=== PATIENT | female | born 1955 | race Caucasian/White ===

== ENCOUNTER → 2017-04-22 | Outpatient (CLI) | payer MEDICARE, OTHER ==
[2017-04-27 11:07] LABS: LDL Size 21.6 nm (>20.5); LDL Size 2 21.6 nm (>=20.8); LDL-P (LDL Particle Number) 1214 nmol/L (<1000); Small LDL (Particle Number) 245 nmol/L (<=527)
== END | disposition home or self-care (01) ==
LOC: LABWHC1 09:19
PROVIDERS: ATTEND Internal Medicine Cardiovascular Disease
DX: E78.5 Hyperlipidemia, unspecified (principal)
CPT/HCPCS: 36415; 83704

== ENCOUNTER → 2017-07-20 | Outpatient (CLI) | payer MEDICARE, OTHER ==
--- NOTE | 2017-07-22 10:28 | MM ---
Reason for exam: screening (asymptomatic). Last mammogram was performed 1 year and 4 months ago. History: Patient is postmenopausal and had first child at age 33. Physical Findings: A clinical breast exam by your physician is recommended on an annual basis and results should be correlated with mammographic findings. MG 3D Screening Mammo W/Cad Bilateral CC and MLO view(s) were taken. Prior study comparison: March 19, 2016, bilateral MG 3d screening mammo w/cad. The breast tissue is heterogeneously dense. This may lower the sensitivity of mammography. No suspicious abnormality. No significant changes when compared with prior studies. ASSESSMENT: Negative, BI-RAD 1 RECOMMENDATION: Routine screening mammogram of both breasts in 1 year.
== END | disposition home or self-care (01) ==
LOC: RADMAMWWP 12:08
PROVIDERS: ATTEND Family Medicine
DX: Z12.31 Encounter for screening mammogram for malignant neoplasm of breast (principal)
CPT/HCPCS: 77063

== ENCOUNTER 2018-06-06 09:24 | Day surgery (SDC) | payer MEDICARE, OTHER ==
[2018-05-31 14:40] VITALS: BMI 18.7
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
[~2018-06-06 09:24] MED LIST: LACTATED RINGERS 1,000 ML IV SCH
[2018-06-06] MEDS ORDERED: LIDOCAINE 1% 20 ML VIAL (10MG/ML) FOR IV START INTRADERMA ONE (10:04)
[2018-06-06 10:07] VITALS: RESP 16; TEMP 97.8
[2018-06-06] MEDS ORDERED: PROPOFOL 10 MG/ML 20 ML VIAL IV ONE (11:01)
--- NOTE | 2018-06-06 11:28 | P.PCN ---
Date of Procedure: 06/06/18 Description of Procedure: PREOPERATIVE DIAGNOSIS: Colonoscopy screening Family history of gastrointestinal cancer POSTOPERATIVE DIAGNOSIS: Colonoscopy screening Family history of gastrointestinal cancer Multiple tubular adenomas throughout the colon. External hemorrhoids, grade 3. Severe scattered diverticulosis OPERATION: Colonoscopy to the ileocecal valve and appendiceal orifice. Colonoscopy with multiple hot snare polypectomies SURGEON: Shanelle Ross MD. ANESTHESIA: MAC. INDICATIONS: The patient is a 63-year-old female who presents for colonoscopy screening. Benefits and risks were described and informed consent was obtained. DESCRIPTION OF PROCEDURE: The patient had undergone Gatorade, MiraLAX and Dulcolax prep. A pediatric colonoscope was used. She had been brought into the operating room and laid in the left lateral decubitus position. After adequate intravenous sedation, the rectum was examined with 2% lidocaine jelly. External hemorrhoids were encountered. The rectal tone was within normal limits. No lesions were palpated in the rectal vault. An Olympus colonoscope was advanced until the ileocecal valve and appendiceal orifice were clearly viewed. The prep was fair with visualization of the mucosal folds. The scope was removed with visualization of each mucosal fold. Scattered diverticulosis was encountered. Multiple colonic polyps were found and snare polypectomy. No evidence of focal colitis was found. Retroflexion of the scope demonstrated grade 3 internal hemorrhoids without active bleeding or inflammation. The colon was desufflated. The patient had tolerated the procedure well. Withdrawal time was over 6 minutes. FINDINGS: Internal hemorrhoids, grade 3 External hemorrhoids, grade 3. No arteriovenous malformations. Severe sigmoid diverticulosis Removal of 2 polyps: - Snare polypectomy 20 cm from the anal verge, 5 mm tubulovillous adenoma polyp , sigmoid colon - Snare polypectomy 15 cm from the anal verge, 8 mm flat villous adenoma polyp, sigmoid colon No focal colitis. RECOMMENDATIONS: Given severity of tubular adenomas, recommend repeat colonoscopy 1 year, 2018 Plan - Discharge Summary New Discharge Prescriptions: No Action HYDROcodone/APAP 10-325MG [[place] 10] 1 each PO Q4HR PRN PRN Reason: Pain lamoTRIgine [LaMICtal] 200 mg PO HS lamoTRIgine [LaMICtal] 150 mg PO DAILY OLANZapine [ZyPREXA] 5 mg PO DAILY Dextroamphetamine/Amphetamine [Adderall] 30 mg PO DAILY Atorvastatin [Lipitor] 80 mg PO DAILY Mirtazapine [Remeron] 30 mg PO HS ALPRAZolam [Xanax] 1 mg PO TID PRN PRN Reason: Anxiety Discharge Medication List HYDROcodone/APAP 10-325MG [[place] 10] 1 each PO Q4HR PRN 03/24/15 [History] ALPRAZolam [Xanax] 1 mg PO TID PRN 05/31/18 [History] Atorvastatin [Lipitor] 80 mg PO DAILY 05/31/18 [History] Dextroamphetamine/Amphetamine [Adderall] 30 mg PO DAILY 05/31/18 [History] Mirtazapine [Remeron] 30 mg PO HS 05/31/18 [History] OLANZapine [ZyPREXA] 5 mg PO DAILY 05/31/18 [History] lamoTRIgine [LaMICtal] 150 mg PO DAILY 05/31/18 [History] lamoTRIgine [LaMICtal] 200 mg PO HS 05/31/18 [History]
[2018-06-06 11:54] VITALS: BP 140/82; PULSE 78
== END 2018-06-06 11:56 | disposition home or self-care (01) ==
LOC: ORWHC2ENDO 09:24
PROVIDERS: ATTEND Surgery Plastic and Reconstructive Surgery
DX: Z12.11 Encounter for screening for malignant neoplasm of colon (principal); D12.5 Benign neoplasm of sigmoid colon; K57.30 Diverticulosis of large intestine without perforation or abscess without bleeding; K64.2 Third degree hemorrhoids; K64.4 Residual hemorrhoidal skin tags; Z80.0 Family history of malignant neoplasm of digestive organs; E78.5 Hyperlipidemia, unspecified; F17.210 Nicotine dependence, cigarettes, uncomplicated; F41.9 Anxiety disorder, unspecified; M79.9 Soft tissue disorder, unspecified; G89.29 Other chronic pain; M54.9 Dorsalgia, unspecified; Z79.899 Other long term (current) drug therapy
CPT/HCPCS: 88305; 45385; J2704

== ENCOUNTER → 2018-09-07 | Outpatient (CLI) | payer MEDICARE, OTHER ==
--- NOTE | 2018-09-09 08:06 | MM ---
Reason for exam: screening (asymptomatic). Last mammogram was performed 1 year and 2 months ago. History: Patient is postmenopausal and had first child at age 33. Physical Findings: A clinical breast exam by your physician is recommended on an annual basis and results should be correlated with mammographic findings. MG 3D Screening Mammo W/Cad Bilateral CC and MLO view(s) were taken. Prior study comparison: July 20, 2017, bilateral MG 3d screening mammo w/cad. March 19, 2016, bilateral MG 3d screening mammo w/cad. The breast tissue is heterogeneously dense. This may lower the sensitivity of mammography. Finding: There is a 7 mm circumscribed oval mass in the upper outer quadrant, posterior position of the left breast. There is a chronic nodularity bilaterally. Increased in size right axilla, favor benign lymph nodes. New finding since July 20, 2017 and March 19, 2016. ASSESSMENT: Incomplete: need additional imaging evaluation, BI-RAD 0 RECOMMENDATION: Ultrasound of the left breast. [facility] will attempt to contact patient to return for ultrasound.
== END | disposition home or self-care (01) ==
LOC: RADMAMWWP 13:59
PROVIDERS: ATTEND Family Medicine
DX: Z12.31 Encounter for screening mammogram for malignant neoplasm of breast (principal)
CPT/HCPCS: 77063; 77067

== ENCOUNTER → 2018-09-13 | Outpatient (CLI) | payer MEDICARE, OTHER ==
--- NOTE | 2018-09-13 12:24 | USB ---
Reason for exam: additional evaluation requested from abnormal screening. History: Patient is postmenopausal and had first child at age 33. Physical Findings: Nurse did not find any significant physical abnormalities on exam. US Breast Workup Limited LT Technologist: Annette Tong RT (R)(M) Left limited breast ultrasound including focal area of concern, retroareolar and axilla demonstrates a 7 x 4 x 6mm questionable echogenic node at 2 o'clock 5cm from nipple. This improves on MLO spot compression and appears to have a notch on spot compression CC. Likely an intramammary node. Short term follow up recommended. These results were verbally communicated with the patient and result sheet given to the patient on 09/13/18. ASSESSMENT: Probably benign, BI-RAD 3 RECOMMENDATION: Follow-up diagnostic mammogram and ultrasound of the left breast in 6 months.
--- NOTE | 2018-09-14 08:54 | MM ---
Reason for exam: additional evaluation requested from abnormal screening. Last mammogram was performed less than 1 month ago. History: Patient is postmenopausal and had first child at age 33. Physical Findings: Nurse did not find any significant physical abnormalities on exam. MG 3D Work Up W/Cad LT Spot compression CC and spot compression MLO view(s) were taken of the left breast. Technologist: Annette Tong RT (R)(M) Prior study comparison: September 07, 2018, bilateral MG 3d screening mammo w/cad. July 20, 2017, bilateral MG 3d screening mammo w/cad. The breast tissue is heterogeneously dense. This may lower the sensitivity of mammography. There is a left posterior depth upper outer quadrant mass that persists on spot CC view and improves on spot MLO. These results were verbally communicated with the patient and result sheet given to the patient on 09/13/18. ASSESSMENT: Incomplete: need additional imaging evaluation, BI-RAD 0 RECOMMENDATION: Ultrasound of the left breast. (upper outer quadrant)
== END ==
LOC: RADUSWWP 10:21
PROVIDERS: ATTEND Family Medicine
DX: R92.8 Other abnormal and inconclusive findings on diagnostic imaging of breast (principal)
CPT/HCPCS: 77065; 76642; G0279; 77061

== ENCOUNTER 2020-02-15 13:39 | Emergency (ER) | payer MEDICARE, OTHER ==
[2020-02-15 13:50] VITALS: TEMP 97.7
[2020-02-15] MEDS ORDERED: methylPREDNISolone SOD SUCCI 125 MG/2 ML VIAL IV STA (14:36)
[2020-02-15 14:52] LABS: Basophils # (A) 0.1 k/uL (0-0.2); Basophils % (A) 1 %; Eosinophils % (A) 0 %; HCT 41.2 % (34.0-46.0); HGB 13.3 gm/dL (11.4-16.0); Lymphocytes % (A) 23 %; MCH 29.7 pg (25.0-35.0); MCHC 32.3 g/dL (31.0-37.0); MCV 91.9 fL (80.0-100.0); Mean Platelet Volume 8.1; Monocytes # (A) 0.4 k/uL (0-1.0); Monocytes % (A) 4 %; Neutrophils # (A) 5.9 k/uL (1.3-7.7); Neutrophils % (A) 69 %; Platelet Count 262 k/uL (150-450); RBC 4.49 m/uL (3.80-5.40); RDW 12.5 % (11.5-15.5); WBC 8.5 k/uL (3.8-10.6)
[2020-02-15 14:59] LABS: ALT 19 U/L (4-34); AST 26 U/L (14-36); African American GFR (CKD) >90 (>60 ml/min/1.73 sqM); Albumin 3.9 g/dL (3.5-5.0); Alkaline Phosphatase 54 U/L (38-126); Anion Gap 5 mmol/L; Blood Urea Nitrogen 11 mg/dL (7-17); Carbon Dioxide 26 mmol/L (22-30); Chloride 109 mmol/L (98-107); Glucose 83 mg/dL (74-99); Non-African American GFR(CKD) >90 (>60 ml/min/1.73 sqM); Potassium 4.6 mmol/L (3.5-5.1); Sodium 140 mmol/L (137-145); Total Bilirubin 0.2 mg/dL (0.2-1.3); Total Protein 6.1 g/dL (6.3-8.2)
[2020-02-15 15:24] LABS: INR 0.9 (<1.2); Prothrombin Time 9.8 sec (9.0-12.0)
--- NOTE | 2020-02-15 15:33 | XR ---
EXAMINATION TYPE: XR chest 1V portable DATE OF EXAM: 02/15/2020 COMPARISON: NONE HISTORY: Shortness of breath, cough, and fever TECHNIQUE: Single frontal view of the chest is obtained. FINDINGS: There is no focal air space opacity, pleural effusion, or pneumothorax seen. The cardiac silhouette size is within normal limits. The osseous structures are intact. Right-sided humeral fra cture or hardware is partially visualized.. IMPRESSION: No acute process.
[2020-02-15 15:40] LABS: Partial Thromboplastin Time 20.3 sec (22.0-30.0)
[2020-02-15] MEDS ORDERED: predniSONE 20 MG TAB PO STA (16:05)
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
[2020-02-15 16:42] VITALS: BP 133/91; PULSE 71; RESP 20
== END 2020-02-15 16:44 | disposition home or self-care (01) ==
LOC: EC 13:39
DX: J98.01 Acute bronchospasm (principal); E78.5 Hyperlipidemia, unspecified; F41.9 Anxiety disorder, unspecified; F31.9 Bipolar disorder, unspecified; F43.10 Post-traumatic stress disorder, unspecified; F17.200 Nicotine dependence, unspecified, uncomplicated; Z79.899 Other long term (current) drug therapy
CPT/HCPCS: 36415; 93005; 83880; 80053; 83605; 85025; 85610; 85730; 87502; 71045; 99285; 96374; J2930

== ENCOUNTER → 2020-10-14 | Outpatient (CLI) | payer MEDICARE, OTHER | END | disposition home or self-care (01) | LOC: LABWHC1 11:24 | PROVIDERS: ATTEND Family Medicine | DX: R05 Cough (principal); R09.89 Other specified symptoms and signs involving the circulatory and respiratory systems | CPT/HCPCS: U0003; C9803 ==

== ENCOUNTER 2020-12-11 07:50 | Day surgery (SDC) | payer MEDICARE, OTHER ==
[2020-12-06 10:37] VITALS: BMI 18.5
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
[2020-12-11] MEDS ORDERED: LIDOCAINE 1% (10MG/ML) FOR IV START INTRADERMA ONE (08:35)
[2020-12-11] MEDS ORDERED: PROPOFOL 10 MG/ML 20 ML VIAL IV ONE (08:38)
[2020-12-11 08:41] VITALS: RESP 16; TEMP 97.5
--- NOTE | 2020-12-11 09:12 | P.PCN ---
Date of Procedure: 12/11/20 Description of Procedure: PREOPERATIVE DIAGNOSIS: Personal history of colon polyps POSTOPERATIVE DIAGNOSIS: Personal history of colon polyps Tubular adenoma transverse colon Sigmoid diverticulosis OPERATION: Colonoscopy to the cecum Colonoscopy with hot snare polypectomies SURGEON: Shanelle Ross MD. ANESTHESIA: MAC. INDICATIONS: The patient is an 65-year-old female who presents personal history of colon polyps. Last colonoscopy 5 years. Benefits and risks were described and informed consent was obtained. DESCRIPTION OF PROCEDURE: The patient had undergone Suprep. She had been brought into the operating room and laid in the left lateral decubitus position. After adequate intravenous sedation, the rectum was examined with 2% lidocaine jelly. External hemorrhoids were encountered. The rectal tone was within normal limits. No lesions were palpated in the rectal vault. An Olympus colonoscope was advanced until the cecum, ileocecal valve and appendiceal orifice were clearly viewed. The prep was fair. Sigmoid diverticulosis was encountered. Colonic polyps were found and snare polypectomy. No evidence of focal colitis was found. Retroflexion of the scope demonstrated grade 2 internal hemorrhoids without active bleeding or inflammation. The colon was desufflated. The patient had tolerated the procedure well. Withdrawal time was over 6 minutes. FINDINGS: Aronchick preparation quality scale 1 (1-5) Internal hemorrhoids, grade 2 External hemorrhoids, grade 2 No arteriovenous malformations. Sigmoid diverticulosis Removal of 1 polyp: - Snare polypectomy at proximal transverse colon, 8 mm polyp. No focal colitis. RECOMMENDATIONS: Repeat colonoscopy 2 years, 2022 Plan - Discharge Summary Discharge Rx Participant: No New Discharge Prescriptions: Continue lamoTRIgine [LaMICtal] 200 mg PO HS lamoTRIgine [LaMICtal] 150 mg PO DAILY OLANZapine [ZyPREXA] 5 mg PO DAILY Dextroamphetamine/Amphetamine [Adderall] 30 mg PO DAILY Atorvastatin [Lipitor] 80 mg PO DAILY ALPRAZolam [Xanax] 1 mg PO TID PRN PRN Reason: Anxiety Albuterol Nebulized [Ventolin Nebulized] 2.5 mg INHALATION Q4H PRN #25 nebu PRN Reason: difficulty in breathing oxyCODONE-APAP 10-325MG [Percocet 10-325 mg] 1 tab PO Q8HR PRN PRN Reason: Pain Discharge Medication List ALPRAZolam [Xanax] 1 mg PO TID PRN 05/31/18 [History] Atorvastatin [Lipitor] 80 mg PO DAILY 05/31/18 [History] Dextroamphetamine/Amphetamine [Adderall] 30 mg PO DAILY 05/31/18 [History] OLANZapine [ZyPREXA] 5 mg PO DAILY 05/31/18 [History] lamoTRIgine [LaMICtal] 150 mg PO DAILY 05/31/18 [History] lamoTRIgine [LaMICtal] 200 mg PO HS 05/31/18 [History] Albuterol Nebulized [Ventolin Nebulized] 2.5 mg INHALATION Q4H PRN #25 nebu 02/15/20 [Rx] oxyCODONE-APAP 10-325MG [Percocet 10-325 mg] 1 tab PO Q8HR PRN 12/06/20 [History] Follow up Appointment(s)/Referral(s): Shanelle Ross MD [STAFF PHYSICIAN] - As Needed Patient Instructions/Handouts: Diverticulosis Diet (GEN), Diverticulosis (DC), Colorectal Polyps (DC) Activity/Diet/Wound Care/Special Instructions: Repeat colonoscopy 2 years, 2022 Discharge Disposition: HOME SELF-CARE
[2020-12-11 09:23] VITALS: BP 132/79; PULSE 58
== END 2020-12-11 10:04 | disposition home or self-care (01) ==
LOC: ORWHC2ENDO 07:50
PROVIDERS: ATTEND Surgery Plastic and Reconstructive Surgery
DX: Z12.11 Encounter for screening for malignant neoplasm of colon (principal); D12.3 Benign neoplasm of transverse colon; K57.30 Diverticulosis of large intestine without perforation or abscess without bleeding; K64.4 Residual hemorrhoidal skin tags; K64.1 Second degree hemorrhoids; Z86.010 Personal history of colon polyps; E78.5 Hyperlipidemia, unspecified; G89.29 Other chronic pain; M54.9 Dorsalgia, unspecified; M25.569 Pain in unspecified knee; F17.210 Nicotine dependence, cigarettes, uncomplicated; F41.9 Anxiety disorder, unspecified; F90.9 Attention-deficit hyperactivity disorder, unspecified type; Z90.49 Acquired absence of other specified parts of digestive tract; Z98.890 Other specified postprocedural states; Z87.81 Personal history of (healed) traumatic fracture; Z79.899 Other long term (current) drug therapy; Z79.891 Long term (current) use of opiate analgesic; Z87.39 Personal history of other diseases of the musculoskeletal system and connective tissue
CPT/HCPCS: 88305; 45385; J2704

== ENCOUNTER 2021-11-13 16:49 | Observation (INO) | payer MEDICARE, OTHER ==
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
[2021-11-13 19:12] LABS: Basophils # (A) 0.1 k/uL (0-0.2); Basophils % (A) 1 %; Eosinophils % (A) 0 %; HCT 39.2 % (34.0-46.0); HGB 12.5 gm/dL (11.4-16.0); Lymphocytes # (A) 1.9 k/uL (1.0-4.8); Lymphocytes % (A) 24 %; MCH 30.7 pg (25.0-35.0); MCV 95.8 fL (80.0-100.0); Monocytes # (A) 0.4 k/uL (0-1.0); Monocytes % (A) 5 %; Neutrophils # (A) 5.6 k/uL (1.3-7.7); Neutrophils % (A) 69 %; Platelet Count 225 k/uL (150-450); RBC 4.09 m/uL (3.80-5.40); RDW 12.8 % (11.5-15.5); WBC 8.1 k/uL (3.8-10.6)
[2021-11-13 19:21] LABS: Sodium 137 mmol/L (137-145)
[2021-11-13 19:23] LABS: African American GFR (CKD) >90 (>60 ml/min/1.73 sqM); Anion Gap 8 mmol/L; Blood Urea Nitrogen 12 mg/dL (7-17); Calcium 9.1 mg/dL (8.4-10.2); Carbon Dioxide 25 mmol/L (22-30); Chloride 104 mmol/L (98-107); Glucose 88 mg/dL (74-99); Magnesium 2.1 mg/dL (1.6-2.3); Non-African American GFR(CKD) 85 (>60 ml/min/1.73 sqM)
[2021-11-13 19:35] LABS: INR 0.9 (<1.2); Partial Thromboplastin Time 22.4 sec (22.0-30.0)
--- NOTE | 2021-11-13 20:59 | CT ---
EXAMINATION TYPE: CT angio head neck DATE OF EXAM: 11/13/2021 HISTORY: 66 yo with dizziness and double vision. COMPARISON: None CT DLP: 345.5 mGycm. Automated Exposure Control for Dose Reduction was Utilized. TECHNIQUE: CTA scan of the neck is performed with IV Contrast, patient injected with 65ml mL of Isov ue 370, axial images are obtained, coronal and sagittal reformatted images are reviewed. 3D reconstru cted images are created on an independent workstation and reviewed. FINDINGS: CTA neck findings: Carotid/Vascular Structures: The bilateral carotid and vertebral arterial systems are widely patent. There is no dissection, significant stenosis, or filling defect. Other: No incidental findings. CTA brain findings: The anterior and posterior intracranial arterial systems are widely patent. There is no significant s tenosis, dissection, filling defect, or aneurysm. Other: No incidental findings. IMPRESSION: No significant abnormality is seen. NASCET criteria was used in interpretation of this exam?
[2021-11-13] MEDS ORDERED: NALOXONE 0.4 MG/ML 1 ML VIAL IV PRN (21:08)
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
[2021-11-14 12:15] LABS: Lithium <0.2 mmol/L
[2021-11-14 12:28] LABS: Amphetamine Screen,Urine Detected (NotDetected); Barbiturate Screen,Urine Not Detected (NotDetected); Benzodiazepines Screen,Urine Detected (NotDetected); Cocaine Screen,Urine Not Detected (NotDetected); Methadone Screen, Urine Not Detected (NotDetected); Opiate Screen,Urine Not Detected (NotDetected); Oxycodone Screen, Urine Detected (NotDetected); Phencyclidine Screen,Urine Not Detected (NotDetected); Tricyclic Antidepressant,Urine Not Detected (NotDetected); Urn Cannabinoid Scrn Detected (NotDetected)
--- NOTE | 2021-11-14 14:20 | MR ---
EXAMINATION TYPE: MR brain wo con DATE OF EXAM: 11/14/2021 COMPARISON: CT brain from yesterday. HISTORY: Diplopia, dizziness, visual disturbance, ?CVA TECHNIQUE: Multiplanar, multisequence imaging of the brain and brainstem is performed without IV cont rast. FINDINGS: Diffusion weighted images demonstrate no evidence of a recent infarct or other diffusion abnormality. Ventricles and sulci within normal limits in size for patient's age. Scattered foci of T2 hyperintens ity are seen throughout the white matter bilaterally. Approximately 30 scattered lesions are seen. Le sions are nonspecific in appearance and distribution. Midline structures demonstrate normal morphology. The craniocervical junction appears within normal limits. Normal vascular flow voids are present. The visualized sinuses are clear and the globes are i ntact. IMPRESSION: No MRI evidence for recent infarct. [id number] nonspecific white matter changes fav or product of chronic small vessel ischemic change.
[2021-11-14] MEDS ORDERED: PNEUMOCOCCAL VACC-PNEUMOVAX 23 25 MCG/0.5 ML VIAL IM ONE (17:25)
--- NOTE | 2021-11-14 17:47 | ECHOF ---
Referral Reason:Neuro symptoms, ?TIA MEASUREMENTS -------- HEIGHT: 162.6 cm WEIGHT: 49.9 kg BP: 120/88 RVIDd: 2.7 cm (< 3.3) IVSd: 1.1 cm (0.6 - 1.1) LVIDd: 2.9 cm (3.9 - 5.3) LVPWd: 1.1 cm (0.6 - 1.1) IVSs: 1.2 cm LVIDs: 2.2 cm LVPWs: 1.4 cm LA Diam: 2.7 cm (2.7 - 3.8) LAESV Index (A-L): 24.11 ml/m Ao Diam: 3.0 cm (2.0 - 3.7) AV Cusp: 2.0 cm (1.5 - 2.6) MV EXCURSION: 12.180 mm (> 18.000) MV EF SLOPE: 77 mm/s (70 - 150) EPSS: 0.5 cm MV E Jose: 0.81 m/s MV DecT: 231 ms MV A Jose: 1.00 m/s MV E/A Ratio: 0.81 RAP: 5.00 mmHg RVSP: 26.56 mmHg FINDINGS -------- Sinus rhythm. This was a technically good study. The left ventricular size is normal. There is borderline concentric left ventricular hypertrophy. Overall left ventricular systolic function is normal with, an EF between 60 - 65 %. The right ventricle is normal in size. Normal LA size by volume 22+/-6 ml/m2. The right atrium is normal in size. Interatrial and interventricular septum intact. Trace amount of aortic regurgitation. Mild mitral regurgitation is present. Mild tricuspid regurgitation present. Right ventricular systolic pressure is normal at < 35 mmHg. Trace/mild (physiologic) pulmonic regurgitation. The aortic root size is normal. Normal inferior vena cava with normal inspiratory collapse consistent with estimated right atrial pre ssure of 5 mmHg. There is no pericardial effusion. CONCLUSIONS -------- 1. The left ventricular size is normal. 2. There is borderline concentric left ventricular hypertrophy. 3. Overall left ventricular systolic function is normal with, an EF between 60 - 65 %. 4. Trace amount of aortic regurgitation. 5. Mild mitral regurgitation is present. 6. Mild tricuspid regurgitation present. 7. Trace/mild (physiologic) pulmonic regurgitation. 8. There is no pericardial effusion. VEHICLE REFINISHER: MICHAEL Hdez
[2021-11-14] MEDS ORDERED: FLUTICASONE 50MCG/SPRAY NASAL 16GM EA NOSTRIL PRN (17:50)
[2021-11-14] MEDS ORDERED: ALPRAZolam 1 MG TAB PO PRN (17:50)
[2021-11-14] MEDS ORDERED: oxyCODONE-APAP 10-325MG 1 EACH TAB PO PRN (17:50)
--- NOTE | 2021-11-14 19:49 | HP ---
HISTORY AND PHYSICAL CHIEF COMPLAINT: Visual disturbances and ataxia. HISTORY OF PRESENT ILLNESS: This is another admission for this 66-year-old white female with psychiatric issues. Apparently she was seeing her psychiatrist and reported that for several weeks she had been having scotomata, hallucinations and diplopia. She was sent to the emergency room because of the possibility of central nervous system issues. This could also be related to medication side effects. She stated that she also had been somewhat dizzy and ataxic. REVIEW OF SYSTEMS: She denied any headaches, difficulty with the vision other than that already mentioned, chest pain, shortness of breath, palpitations, abdominal pain, nausea, vomiting, melena, hematochezia, diarrhea, renal failure, dysuria, frequency, urgency, incontinence, or any focal neurologic, cranial nerve or sensory motor deficits. Past medical history, family history, and personal and social histories demonstrate that she has had a longstanding history of psychiatric issues, including schizophrenia, ADD, ADHD, depression and anxiety. She is ALLERGIC TO BACLOFEN. Medications that she is on include Symbicort, vitamin D, atorvastatin, Xanax, aspirin, Percocet, Effexor, Adderall, vitamin D, Zyprexa, lamotrigine and Ventolin. The remainder of her history is unremarkable, except she does continue to smoke. She does not drink. PHYSICAL EXAMINATION: Blood pressure is 112/78, pulse of 85 and regular, respirations of 18 and temperature 98.6. In general she appeared to be slender and in no acute distress. Skin color was normal and the skin was warm and dry. Lymph nodes were not enlarged. Head, ears, eyes, nose, mouth and throat were normal. Neck veins were not distended. There were no carotid bruits. Bilateral carotid pulses were palpable. The chest was clear to auscultation and percussion. The cardiac exam demonstrated normal sinus rhythm with no murmurs or extra sounds. The abdomen was soft and nontender without visceromegaly or masses. Bowel sounds are present. Extremities are normal. Neurologically she seemed to be intact. Cranial nerves are intact from 2 to 12 and sensory motor exam was normal. She is admitted to the hospital with the diagnoses: 1. Diplopia, dizziness, ataxia and scotomata, etiology unknown. 2. Major depression with schizophrenia and attention deficit disorder. 3. Nicotine abuse. PLAN: 1. Bedrest. 2. IV fluids. 3. Frequent monitoring of her neurologic status and vital signs. 4. Neurology consult. 5. MRI. 6. Rule out medication side effect. SHIRA / DENN: [id number] /
--- NOTE | 2021-11-14 19:49 | PN ---
PROGRESS NOTE CHIEF COMPLAINT: Scotomata, diplopia and dizziness. HISTORY OF PRESENT ILLNESS: This lady is doing fairly well. She has had no new problems. Her MRI is normal as well as the CT angiogram of the neck and head. She is complaining of her usual problems of anxiety and back pain and her medications will be reordered. PHYSICAL EXAMINATION: Chest is clear. Cardiac exam is normal. Abdomen is soft, nontender. IMPRESSION: Ataxia, scotomata and diplopia. PLAN: 1. Continue workup. 2. Await lithium level. MMODL / IJN: [id number] /
[2021-11-14] MEDS: GABAPENTIN 300 MG CAP PO SCH (20:23)
[2021-11-14] MEDS: ASPIRIN 81 MG PO SCH (20:23)
[2021-11-14] MEDS: lamoTRIgine 100 MG TAB PO SCH (20:23)
[2021-11-14] MEDS: SYMBICORT 160-4.5 MCG INHALER INHALATION SCH (20:50)
[2021-11-14] MEDS ORDERED: LATANOPROST 0.005% OPHTH DROPS 2.5 ML BTL BOTH EYES SCH (21:00)
[2021-11-14] MEDS ORDERED: OLANZapine 7.5 MG TAB PO SCH (21:00)
[2021-11-14] MEDS ORDERED: LITHIUM CARBONATE 300 MG CAP PO SCH (21:00)
[2021-11-15] MEDS: SYMBICORT 160-4.5 MCG INHALER INHALATION SCH (08:05)
[2021-11-15] MEDS ORDERED: TIMOLOL 0.5% OPHTH DROPS 5 ML BTL BOTH EYES SCH (09:00)
[2021-11-15] MEDS ORDERED: LORATADINE 10 MG TAB PO SCH (09:00)
[2021-11-15 09:06] VITALS: RESP 17
[2021-11-15] MEDS: GABAPENTIN 300 MG CAP PO SCH (09:25)
[2021-11-15] MEDS: ASPIRIN 81 MG PO SCH (09:26)
[2021-11-15] MEDS: lamoTRIgine 100 MG TAB PO SCH (09:26)
[2021-11-15 11:13] VITALS: BMI 18.8
[2021-11-15] MEDS ORDERED: CYANOCOBALAMIN 1,000 MCG/ML 1 ML VIAL IM ONE (14:00)
[2021-11-15 14:20] VITALS: BP 128/79; PULSE 68; TEMP 97.8
--- NOTE | 2021-11-15 15:29 | P.PN ---
Subjective Progress Note Date: 11/15/21 This is a telemedicine neurology follow-up performed today on 11/15/2021. Patient was seen for a follow-up. Patient states she is feeling much better. Her dizziness is much improved. Her mentation is improved. Offers no complaints. Objective - Vital Signs Vital signs: Vital Signs Temp 97.8 F 11/15/21 12:00 Pulse 68 11/15/21 14:00 Resp 17 11/15/21 14:00 BP 128/79 11/15/21 12:00 Pulse Ox 100 11/15/21 12:00 Intake & Output 11/14/21 11/15/21 11/15/21 18:59 06:59 18:59 Intake Total 240 100 Balance 240 100 Weight 49.895 kg 49.8 kg 49.8 kg Intake: Oral 240 100 Other: Voiding Method Toilet Toilet # Voids 1 1 - Exam Mental status, speech and language functions are normal. Cranial nerves are normal. Muscles normal. - Labs CBC & Chem 7: 11/13/21 18:36 11/13/21 18:36 Assessment and Plan Assessment: * 66-year-old female with a one-month history of multiple symptoms including dizziness, intermittent double and blurred vision, "not feeling like herself", nausea. Symptoms started after patient started taking Neurontin about a month ago, at the same time symptoms started. Patient already was taking multiple psychoactive medications prior, and after addition of Neurontin, probably tipped the balance off towards side effects. Her examination is nonfocal. * Visual disturbance, unclear etiology. Rule out central ischemia. * Tobacco use * Depression * Marijuana use * ADD Plan: * MRI of the brain without contrast is normal. No acute process. No acute infarct. Mild to moderate nonspecific white matter changes favored product of chronic small vessel ischemic change. * 2-D echo revealed normal left ventricular size. Borderline concentric LVH. EF is between 60-65%. Trace amount of AR. Mild MR. No embolic source. * CTA of head and neck showed no embolic source. * Suggest discontinuing gabapentin because of side effects. * Patient recommended to follow up with her psychiatrist to review her medication list, as she is probably experiencing side effects from the medication. * Recommended complete tobacco cessation * Urine drug screen positive for oxycodone, amphetamine, benzodiazepine and marijuana. * Patient's blood test shows B12 387, folate 10.4 TSH 1.18, Lamictal is 3.7 (2- 15), lithium <0.2. Patient given B12 1000 g IM 1 dose. Patient to continue vitamin B12 1000 g sublingually daily. * Continue aspirin 81 mg daily. * Telemetry showing couplets, triplets, some bigeminy's, some PVCs. Sinus rhythm. No other arrhythmia. * Neurologically clear for discharge.
--- NOTE | 2021-11-15 16:23 | DS ---
DISCHARGE SUMMARY DATE OF SERVICE: 11/15/2021 CHIEF COMPLAINT: Ataxia, diplopia and dizziness. HISTORY OF PRESENT ILLNESS AND PHYSICAL EXAMINATION: Details of this lady's history and physical can be found in the initial workup. LABORATORY STUDIES: While she was in the hospital she had laboratory studies, details of which can be found in the laboratory section of her chart. COURSE IN THE HOSPITAL: After admission she was placed on bedrest and started on intravenous fluids and seen by Neurology. MRI was normal. Her symptoms disappeared, and she thought it was related to gabapentin, which she had recently been started on. She was doing well and was asymptomatic and felt that she could go home on 11/15. She will go home on her usual activity and medications without the gabapentin. FINAL DIAGNOSIS: Nausea, ataxia and diplopia secondary to medication side effect. OPERATIONS: None. CONSULTATION: Neurology. She is improved. SHIRA / ANIBAL: [id number] /
== END 2021-11-15 15:25 | disposition home or self-care (01) ==
LOC: EC 16:49 → INTOOBSV 21:08 → 3SCARD 21:08 → UNDODISIN 11-15 15:25
PROVIDERS: ADMIT Family Medicine; ATTEND Family Medicine
DX: R27.0 Ataxia, unspecified (principal); H53.2 Diplopia; R11.0 Nausea; T42.6X5A Adverse effect of other antiepileptic and sedative-hypnotic drugs, initial encounter; H53.459 Other localized visual field defect, unspecified eye; E78.5 Hyperlipidemia, unspecified; H55.00 Unspecified nystagmus; F31.9 Bipolar disorder, unspecified; F43.10 Post-traumatic stress disorder, unspecified; F41.9 Anxiety disorder, unspecified; I49.3 Ventricular premature depolarization; F20.9 Schizophrenia, unspecified; F90.9 Attention-deficit hyperactivity disorder, unspecified type; G56.00 Carpal tunnel syndrome, unspecified upper limb; G89.29 Other chronic pain; M54.2 Cervicalgia; M54.9 Dorsalgia, unspecified; M54.30 Sciatica, unspecified side; M25.569 Pain in unspecified knee; F17.210 Nicotine dependence, cigarettes, uncomplicated; Z23 Encounter for immunization; Z71.6 Tobacco abuse counseling; Z20.822 Contact with and (suspected) exposure to COVID-19; Z79.51 Long term (current) use of inhaled steroids; Z79.1 Long term (current) use of non-steroidal anti-inflammatories (NSAID); Z79.899 Other long term (current) drug therapy; Z88.8 Allergy status to other drugs, medicaments and biological substances; Z86.010 Personal history of colon polyps; Z90.49 Acquired absence of other specified parts of digestive tract; Z98.890 Other specified postprocedural states
CPT/HCPCS: 96372; 99285; 36415; 94640; 93005; 93306; 80048; 80175; 84443; 82607; 82746; 80178; 83735; 85025; 85610; 85730; 80306; 87635; 70496; 70498; 70551; 90732; G0378 ×3; G0009; J3420; Q9967

== ENCOUNTER 2022-07-04 17:51 | Emergency (ER) | payer MEDICARE, OTHER ==
[2022-07-04 18:17] VITALS: BP 143/83; PULSE 61; RESP 16; TEMP 98.3
[2022-07-04] MEDS ORDERED: SODIUM CHLORIDE 0.9% 1,000 ML IV ONE (18:41)
[2022-07-04] MEDS ORDERED: DEXAMETHASONE SOD PHOSPHATE 4 MG/ML 1 ML VIAL IM STA (18:46)
[2022-07-04] MEDS ORDERED: ONDANSETRON 4 MG ODT STARTER PACK 2 TAB BTL PO STA (18:50)
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
--- NOTE | 2022-07-04 19:01 | XR ---
EXAMINATION TYPE: XR chest 2V DATE OF EXAM: 07/04/2022 COMPARISON: 02/15/2020 HISTORY: Short of breath TECHNIQUE: FINDINGS: Heart and mediastinum are normal. Lungs are clear. Diaphragm is normal. Bony thorax appears normal. IMPRESSION: Normal chest. No change.
== END 2022-07-04 19:42 | disposition home or self-care (01) ==
LOC: EC 17:51
DX: U07.1 COVID-19 (principal); E78.5 Hyperlipidemia, unspecified; Z87.891 Personal history of nicotine dependence; Z88.8 Allergy status to other drugs, medicaments and biological substances
CPT/HCPCS: 71046; 99283; 96372; J1100; S0119

== ENCOUNTER 2023-12-12 12:18 | Emergency (ER) | payer MEDICARE, OTHER ==
[2023-12-12] MEDS ORDERED: SODIUM CHLORIDE 0.9% 500 ML 500 ML IV ONE (12:59)
[2023-12-12 13:52] LABS: Basophils % (A) 0 %; Eosinophils # (A) 0.1 k/uL (0-0.7); Eosinophils % (A) 1 %; HCT 35.2 % (34.0-46.0); Hypochromasia Marked; Lymphocytes # (A) 1.4 k/uL (1.0-4.8); Lymphocytes % (A) 16 %; MCH 25.6 pg (25.0-35.0); MCHC 31.2 g/dL (31.0-37.0); MCV 82.1 fL (80.0-100.0); Mean Platelet Volume 7.5; Monocytes # (A) 0.4 k/uL (0-1.0); Monocytes % (A) 5 %; Neutrophils # (A) 6.6 k/uL (1.3-7.7); Neutrophils % (A) 76 %; Platelet Count 318 k/uL (150-450); RBC 4.28 m/uL (3.80-5.40); RDW 15.7 % (11.5-15.5); WBC 8.7 k/uL (3.8-10.6)
[2023-12-12 13:55] LABS: ALT 126 U/L (4-34); AST 30 U/L (14-36); African American GFR (CKD) >90 (>60 ml/min/1.73 sqM); Albumin 3.1 g/dL (3.5-5.0); Alkaline Phosphatase 271 U/L (38-126); Anion Gap 5 mmol/L; Blood Urea Nitrogen 16 mg/dL (7-17); Calcium 8.8 mg/dL (8.4-10.2); Carbon Dioxide 27 mmol/L (22-30); Chloride 107 mmol/L (98-107); Glucose 79 mg/dL (74-99); Lithium 0.7 mmol/L; Non-African American GFR(CKD) >90 (>60 ml/min/1.73 sqM); Potassium 4.2 mmol/L (3.5-5.1); Sodium 139 mmol/L (137-145); Total Bilirubin 0.4 mg/dL (0.2-1.3); Total Protein 5.9 g/dL (6.3-8.2)
[2023-12-12 14:13] LABS: INR 0.9 (<1.2); Partial Thromboplastin Time 22.4 sec (22.0-30.0); Prothrombin Time 10.2 sec (10.0-12.5)
[2023-12-12] MEDS ORDERED: SODIUM CHLORIDE 0.9% 1,000 ML IV ONE (14:19)
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
[2023-12-12 15:23] LABS: Appearance,Urine Clear (Clear); Bilirubin,Urine Negative (Negative); Blood,Urine Negative (Negative); Color,Urine Yellow; Glucose,Urine (UA) Negative (Negative); Ketones,Urine Negative (Negative); Leukocyte Esterase,Urine Negative (Negative); Nitrite,Urine Negative (Negative); PH, Urine 6.5 (5.0-8.0); Protein,Urine Negative (Negative); Specific Gravity,Urine 1.017 (1.001-1.035); Urobilinogen,Urine <2.0 mg/dL (<2.0)
[2023-12-12 15:42] LABS: Amphetamine Screen,Urine Detected (NotDetected); Barbiturate Screen,Urine Not Detected (NotDetected); Benzodiazepines Screen,Urine Detected (NotDetected); Cocaine Screen,Urine Not Detected (NotDetected); Methadone Screen, Urine Not Detected (NotDetected); Opiate Screen,Urine Not Detected (NotDetected); Oxycodone Screen, Urine Not Detected (NotDetected); Phencyclidine Screen,Urine Not Detected (NotDetected); Tricyclic Antidepressant,Urine Not Detected (NotDetected); Urn Cannabinoid Scrn Not Detected (NotDetected)
[2023-12-12 16:44] VITALS: BP 110/70; PULSE 78; RESP 17; TEMP 97.5
== END 2023-12-12 17:31 | disposition home or self-care (01) ==
LOC: EC 12:18
DX: G93.40 Encephalopathy, unspecified (principal); E78.5 Hyperlipidemia, unspecified; F31.9 Bipolar disorder, unspecified; F41.9 Anxiety disorder, unspecified; F90.9 Attention-deficit hyperactivity disorder, unspecified type; M79.7 Fibromyalgia; F17.200 Nicotine dependence, unspecified, uncomplicated; Z79.899 Other long term (current) drug therapy
CPT/HCPCS: 36415; 80053; 80178; 80306; 81003; 82140; 84484; 85025; 85610; 85730; 93005; 96360; 99285

== ENCOUNTER 2024-03-07 12:24 | Emergency (ER) | payer MEDICARE, OTHER ==
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
[2024-03-07 13:09] VITALS: TEMP 97.5
[2024-03-07 13:55] LABS: Anisocytosis Slight; Basophils # (A) 0.1 k/uL (0-0.2); Basophils % (A) 1 %; Eosinophils # (A) 0.1 k/uL (0-0.7); Eosinophils % (A) 2 %; HGB 8.7 gm/dL (11.4-16.0); Hypochromasia Marked; Lymphocytes # (A) 1.4 k/uL (1.0-4.8); Lymphocytes % (A) 19 %; MCH 25.7 pg (25.0-35.0); MCHC 29.8 g/dL (31.0-37.0); MCV 86.1 fL (80.0-100.0); Mean Platelet Volume 7.1; Monocytes # (A) 0.4 k/uL (0-1.0); Monocytes % (A) 5 %; Neutrophils # (A) 5.3 k/uL (1.3-7.7); Neutrophils % (A) 72 %; Platelet Count 556 k/uL (150-450); RBC 3.37 m/uL (3.80-5.40); RDW 17.7 % (11.5-15.5); WBC 7.4 k/uL (3.8-10.6)
[2024-03-07 14:09] LABS: ALT 9 U/L (4-34); AST 18 U/L (14-36); African American GFR (CKD) >90 (>60 ml/min/1.73 sqM); Albumin 3.2 g/dL (3.5-5.0); Alkaline Phosphatase 91 U/L (38-126); Anion Gap 2 mmol/L; Blood Urea Nitrogen 10 mg/dL (7-17); Calcium 8.6 mg/dL (8.4-10.2); Carbon Dioxide 27 mmol/L (22-30); Chloride 112 mmol/L (98-107); Glucose 93 mg/dL (74-99); Magnesium 2.1 mg/dL (1.6-2.3); Non-African American GFR(CKD) >90 (>60 ml/min/1.73 sqM); Potassium 4.3 mmol/L (3.5-5.1); Sodium 141 mmol/L (137-145); Total Bilirubin 0.3 mg/dL (0.2-1.3); Total Protein 5.6 g/dL (6.3-8.2)
[2024-03-07] MEDS: oxyCODONE-APAP 10-325MG 1 EACH TAB PO PRN (14:13)
[2024-03-07 14:18] LABS: NT-Pro-B-Type Natriuretic Pept 56 pg/mL
[2024-03-07 14:24] LABS: INR 0.9 (<1.2); Prothrombin Time 9.8 sec (10.0-12.5)
[2024-03-07 14:32] LABS: Partial Thromboplastin Time 19.6 sec (22.0-30.0)
--- NOTE | 2024-03-07 15:32 | CT ---
CTA CHEST EXAMINATION TYPE: CT angio chest DATE OF EXAM: 03/07/2024 INDICATION: Positive d-dimer. CT DLP: 185.2 mGycm, Automated exposure control for dose reduction was used. CONTRAST: Patient injected with 100 mL of Isovue 370. COMPARISON: None TECHNIQUE: CT of the chest is performed on a spiral scan at 2 mm thick sections. Study is performed with intravenous contrast timed for evaluation for pulmonary embolism. This will limit additional po rtions of the evaluation. 3-D MIP images reconstructed by the technologist are reviewed on the compu ter in the coronal and sagittal planes. FINDINGS: No persistent filling defects are evident to suggest an acute pulmonary embolism. No mediastinal or hilar adenopathy enlarged by CT criteria is evident. The ascending aorta diameter at the level of the main pulmonary artery is 3.4 cm. The main pulmonary artery diameter at the bifurcation is 2.6 cm. Some scarring appears to be at the right apex. Punctate nodularity within the posterior right upper l nica field. Series 406 image 17. Some pneumonitis changes in the anterior right lung. Punctate nodular ity is in the lateral right apex Limited CT sections were through the upper abdomen. Upper abdomen appears unremarkable. IMPRESSION: 1. No acute pulmonary embolism. 2. Scattered punctate nodularities and small areas of pneumonitis change bilateral lungs. Follow-up s tandard CT chest without contrast in 6 months is recommended to reevaluate findings.
--- NOTE | 2024-03-07 15:43 | XR ---
EXAMINATION TYPE: XR chest 2V DATE OF EXAM: 03/07/2024 COMPARISON: 07/04/22 HISTORY: Shortness of breath TECHNIQUE: Frontal and lateral views of the chest are obtained. FINDINGS: Scattered senescent parenchymal changes noted. Hyperinflation compatible with COPD. No evidence for infiltrate. No evidence for atelectasis. Heart size is stable. Mediastinal structures are stable and grossly unremarkable. No evidence for hilar prominence. Degenerative changes dorsal spine. IMPRESSION: 1. No evidence for acute pulmonary disease.
[2024-03-07 17:42] VITALS: RESP 16
[2024-03-07] MEDS: oxyCODONE-APAP 7.5-325MG 1 EACH TAB PO STA (17:49)
[2024-03-07 20:01] VITALS: BP 124/77; PULSE 72
== END 2024-03-07 19:51 | disposition home or self-care (01) ==
LOC: EC 12:24
DX: R06.00 Dyspnea, unspecified (principal); F17.200 Nicotine dependence, unspecified, uncomplicated
CPT/HCPCS: 36415; 93005; 85379; 83880; 80053; 83735; 84484; 85025; 85610; 85730; 71046; 71275; 99285; Q9967

== ENCOUNTER 2024-05-26 17:34 | Emergency (ER) | payer MEDICARE ==
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
[2024-05-26] MEDS: KETOROLAC 15 MG/ML 1 ML VIAL IVP STA (18:44)
[2024-05-26] MEDS: HYDROmorphone 0.5 MG/0.5 ML SYRINGE IVP STA (18:44)
[2024-05-26] MEDS: DEXAMETHASONE SOD PHOSPHATE 10 MG/ML 1 ML VIAL IVP STA (18:45)
[2024-05-26] MEDS: SODIUM CHLORIDE 0.9% 1,000 ML IV STA ×2 (18:45→19:57)
[2024-05-26] MEDS: ACETAMINOPHEN TAB 500 MG TAB PO STA (18:45)
[2024-05-26] MEDS: SODIUM CHLORIDE 0.9% 500 ML 500 ML IV STA (18:46)
[2024-05-26 19:11] LABS: Basophils % (A) 1 %; Eosinophils % (A) 1 %; HCT 40.8 % (34.0-46.0); Hypochromasia Marked; Lymphocytes # (A) 0.8 k/uL (1.0-4.8); Lymphocytes % (A) 23 %; MCH 23.9 pg (25.0-35.0); MCHC 29.3 g/dL (31.0-37.0); MCV 81.4 fL (80.0-100.0); Monocytes # (A) 0.3 k/uL (0-1.0); Monocytes % (A) 9 %; Neutrophils # (A) 2.2 k/uL (1.3-7.7); Neutrophils % (A) 64 %; Platelet Count 184 k/uL (150-450); RBC 5.01 m/uL (3.80-5.40); RDW 15.6 % (11.5-15.5); WBC 3.4 k/uL (3.8-10.6)
[2024-05-26 19:25] LABS: ALT 13 U/L (4-34); AST 22 U/L (14-36); African American GFR (CKD) >90 (>60 ml/min/1.73 sqM); Albumin 3.4 g/dL (3.5-5.0); Alkaline Phosphatase 89 U/L (38-126); Anion Gap 6 mmol/L; Blood Urea Nitrogen 6 mg/dL (7-17); Calcium 8.5 mg/dL (8.4-10.2); Carbon Dioxide 22 mmol/L (22-30); Chloride 114 mmol/L (98-107); Glucose 85 mg/dL (74-99); Non-African American GFR(CKD) >90 (>60 ml/min/1.73 sqM); Phosphorus 3.1 mg/dL (2.5-4.5); Potassium 3.2 mmol/L (3.5-5.1); Sodium 142 mmol/L (137-145); Total Bilirubin 0.3 mg/dL (0.2-1.3); Total Protein 5.7 g/dL (6.3-8.2)
[2024-05-26 19:26] LABS: INR 0.9 (<1.2); Prothrombin Time 10.5 sec (10.0-12.5)
[2024-05-26 19:30] LABS: Partial Thromboplastin Time 20.3 sec (22.0-30.0)
[2024-05-26 19:31] LABS: NT-Pro-B-Type Natriuretic Pept 117 pg/mL
[2024-05-26] MEDS: POTASSIUM BICARBONATE/CIT AC 20 MEQ TABLET.EFF PO STA ×2 (19:58→20:41)
[2024-05-26 20:06] VITALS: RESP 20; TEMP 98.7
[2024-05-26 20:14] LABS: Appearance,Urine Clear (Clear); Bilirubin,Urine Negative (Negative); Blood,Urine Negative (Negative); Color,Urine Colorless; Glucose,Urine (UA) Negative (Negative); Ketones,Urine Negative (Negative); Leukocyte Esterase,Urine Negative (Negative); Nitrite,Urine Negative (Negative); PH, Urine 6.5 (5.0-8.0); Protein,Urine Negative (Negative); Specific Gravity,Urine 1.005 (1.001-1.035); Urobilinogen,Urine <2.0 mg/dL (<2.0)
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
[2024-05-26] MEDS: ACETAMINOPHEN TAB 325 MG TAB PO STA (21:24)
[2024-05-26 21:27] VITALS: BP 133/86; PULSE 62
== END 2024-05-26 21:35 | disposition home or self-care (01) ==
LOC: EC 17:34
DX: U07.1 COVID-19 (principal); J06.9 Acute upper respiratory infection, unspecified; E87.6 Hypokalemia; F12.90 Cannabis use, unspecified, uncomplicated; F17.200 Nicotine dependence, unspecified, uncomplicated
CPT/HCPCS: 36415; 93005; 83880; 80053; 83605; 83735; 84100; 84484; 85025; 85610; 85730; 81003; 71045; 99285; 96374; 96375 ×2; 96361 ×3; J1100; J1885; J1170

== ENCOUNTER → 2024-12-18 | Outpatient (CLI) | payer MEDICARE ==
--- NOTE | 2024-12-18 16:35 | MM ---
Reason for Exam: Screening (asymptomatic). Last mammogram was performed 6 year(s) and 3 month(s) ago. Patient History: Menarche at age 15. First Full-Term at age 33. Late child-bearing (after 30). Postmenopausal. Risk Values: Betty 5 year model risk: 2.2%. NCI Lifetime model risk: 6.3%. Prior Study Comparison: 07/20/2017 Bilateral Screening Mammogram, [facility]. 09/07/2018 Bilateral Screening Mammogram, [facility]. 09/13/2018 Left Diagnostic Mammogram, [facility]. Tissue Density: The breasts are heterogeneously dense, which may obscure small masses. Findings: Analyzed By CAD. There is no suspicious group of microcalcifications or new suspicious mass in either breast. Overall Assessment: Negative, BI-RAD 1 Management: Screening Mammogram of both breasts in 1 year. Patient should continue monthly self-breast exams. A clinical breast exam by your physician is recommended on an annual basis. This exam should not preclude additional follow-up of suspicious palpable abnormalities. Note on Betty scores and lifetime risk: 1. A Betty score greater than 3% is considered moderate risk. If this is the case, consider specialist referral to assess eligibility for a risk reducing agent. 2. If overall lifetime risk for the development of breast cancer is 20% or higher, the patient may qualify for future screening with alternating mammogram and breast MRI. [facility], , 12/18/2024 4:32 PM. Electronically signed and approved by: Tab Cummins M.D. Radiologist
== END | disposition home or self-care (01) ==
LOC: RADMAMWWP 14:16
PROVIDERS: ATTEND Family Medicine
DX: Z12.31 Encounter for screening mammogram for malignant neoplasm of breast (principal); Z78.0 Asymptomatic menopausal state; R92.333 Mammographic heterogeneous density, bilateral breasts
CPT/HCPCS: 77063; 77067